=== PATIENT | female | born 1980 | race Two or more races ===

== ENCOUNTER 2021-07-11 01:22 | Emergency (ER) | payer MEDICAID, OTHER ==
[~2021-07-11] VITALS: Ht 160 cm; Wt 86.2 kg
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
[2021-07-11] MEDS ORDERED: ONDANSETRON HCL/PF 4 MG/2 ML VIAL ONE (02:22)
[2021-07-11] MEDS ORDERED: HYDROMORPHONE 1 MG/1 ML DISP.SYRIN ONE (02:22)
[2021-07-11] MEDS ORDERED: CT SWABBABLE VALVE TRANS SET 1 EA INFUS.SET MC ONE (02:24)
[2021-07-11] MEDS ORDERED: IV NS 0.9% 250 ML IV ONE (02:24)
[2021-07-11] MEDS ORDERED: DIATR MEGLU/DIATRIZOATE SODIUM 120 ML BOTTLE (GASTROGRAPHIN) ONE (02:24)
[2021-07-11] MEDS ORDERED: IOHEXOL-300 100 ML VIAL IV ONE (02:24)
[2021-07-11] MEDS ORDERED: HYDROMORPHONE INJ 2 MG/ML DISP.SYRIN IV ONE (02:30)
[2021-07-11] MEDS ORDERED: DIATR MEGLU/DIATRIZOATE SODIUM 30 ML BOTTLE (GASTROGRAPHIN) PO ONE ×2 (02:30→03:00)
[2021-07-11] MEDS ORDERED: ONDANSETRON HCL/PF 4 MG/2 ML VIAL IVP ONE (02:30)
--- NOTE | 2021-07-11 02:38 | NUR ---
18G IV LINE ESTABLISHED AT [facility]. BLOOD DRAWN AND SENT TO LAB.
[2021-07-11 03:05] LABS: BASOPHILS % (AUTO) 0.3 % (0.0-2.0); EOSINOPHILS % (AUTO) 0.1 % (0.0-6.0); HEMATOCRIT 40 % (33-45); HEMOGLOBIN 13.3 g/dL (11.5-14.8); LYMPHOCYTES # (AUTO) 1.6 K/uL (0.8-4.8); LYMPHOCYTES % (AUTO) 13.7 % (20.0-44.0); MEAN CORPUSCULAR HGB CONC 33 g/dl (31.0-36.0); MEAN CORPUSCULAR VOLUME 101 fL (82-100); MONOCYTES # (AUTO) 0.8 K/uL (0.1-1.30); MONOCYTES % (AUTO) 7.3 % (2.0-12.0); NEUTROPHILS # (AUTO) 8.9 K/uL (1.8-8.9); NEUTROPHILS % (AUTO) 78.6 % (43.0-81.0); PLATELET COUNT (AUTO) 308 K/uL (150-450); RED BLOOD CELL COUNT(AUTO) 3.99 MIL/uL (4.0-5.2); WHITE BLOOD COUNT (AUTO) 11.4 K/uL (4.3-11.0)
[2021-07-11 03:14] LABS: CALCIUM, SERUM 8.6 mg/dL (8.5-10.1); POTASSIUM 3.3 mmol/L (3.5-5.1)
[2021-07-11 03:24] LABS: ALBUMIN 3.7 g/dL (3.4-5.0); BILIRUBIN,DIRECT 0.1 mg/dL (0.0-0.2); BILIRUBIN,TOTAL 0.4 mg/dL (0.2-1.0); TOTAL PROTEIN, SERUM 7.5 g/dL (6.4-8.2)
[2021-07-11] MEDS ORDERED: POTASSIUM CHLORIDE 20 MEQ TAB.PRT.SR PO ONE ×2 (04:16→04:30)
--- NOTE | 2021-07-11 04:32 | NUR ---
PT TO CT VIA [facility]
--- NOTE | 2021-07-11 04:36 | NUR ---
PT TRANSPORTED TO CT VIA [facility]
--- NOTE | 2021-07-11 04:51 | NUR ---
pt returned from ct via [facility]
--- NOTE | 2021-07-11 06:44 | NUR ---
[facility] CALLED FOR TRAUMA HIGHER LEVEL OF CARE.
--- NOTE | 2021-07-11 06:54 | NUR ---
SECOND IV LINE ESTABLISHED 18G RAC PER TRAUMA PROTOCOL
[2021-07-11 07:06] VITALS: BP 112/67
--- NOTE | 2021-07-11 07:17 | NUR ---
PT ACCEPTED TO [facility] BY DR MANCINI. REPORT GIVEN TO FRANK CALABRESE.
[2021-07-11] MEDS ORDERED: IV NS 0.9% 1,000 ML BAG IV ONE (07:30)
[2021-07-11] MEDS ORDERED: IV LR 1000 ML 1,000 ML IV ONE (07:30)
--- NOTE | 2021-07-11 07:44 | NUR ---
[facility] IS TRANSPORTING P-T VIA ALS TO [facility].
--- NOTE | 2021-07-11 07:46 | NUR ---
transferred to [facility], accepted by Dr. Lynn
== END 2021-07-11 07:50 | disposition short-term general hospital (02) ==
LOC: ER 01:29
DX: S36.115A Moderate laceration of liver, initial encounter (principal); V49.9XXA Car occupant (driver) (passenger) injured in unspecified traffic accident, initial encounter; Y92.410 Unspecified street and highway as the place of occurrence of the external cause; Z20.822 Contact with and (suspected) exposure to COVID-19
CPT/HCPCS: 36415; 74177; 80048; 80076; 83690; 84702; 85025; 85730; 87426; 96361; 96374; 96375; 99285; C9803; J1170; J2405; J7030; J7050; J7120 ×2; Q9963 ×3; Q9967